=== PATIENT | female | born 1975 | race Caucasian/White ===

== ENCOUNTER → 2023-04-09 11:31 | Outpatient (BNVA) | payer OTHER, SELFPAY | PROVIDERS: Family Provider Family Medicine; PCP Nurse Practitioner Family; Visit Provider Internal Medicine Rheumatology | DX: Z79.899 Other long term (current) drug therapy (principal); M19.90 Unspecified osteoarthritis, unspecified site; E11.59 Type 2 diabetes mellitus with other circulatory complications | CPT/HCPCS: 36415; 80076; 82565; 83520; 85025; 85651; 86140; 86200; 86480; 86704; 86803; 86812; 87340 ==